=== PATIENT | female | born 1970 | race African-American/Black ===

== ENCOUNTER 2021-11-01 07:00 | Outpatient (RCR) | payer OTHER ==
[~2021-11-01 07:00] MED LIST: EFFEXOR XR 3737.5 MG PO; MOBIC7.5 MG PO
== END 2021-11-05 ==
LOC: PT 07:00
PROVIDERS: ATTEND Orthopaedic Surgery
DX: M25.561 Pain in right knee (principal); M25.661 Stiffness of right knee, not elsewhere classified; M25.461 Effusion, right knee; M62.81 Muscle weakness (generalized)

== ENCOUNTER 2021-12-01 14:00 | Outpatient (RCR) | payer OTHER | END 2021-12-06 | LOC: PT 14:00 | PROVIDERS: ATTEND Orthopaedic Surgery | DX: M25.561 Pain in right knee (principal); M25.661 Stiffness of right knee, not elsewhere classified; M25.461 Effusion, right knee; M62.81 Muscle weakness (generalized) | CPT/HCPCS: 97139 ==

== ENCOUNTER 2021-12-20 08:00 | Outpatient (RCR) | payer OTHER | END 2022-01-05 | LOC: PT 08:00 | PROVIDERS: ATTEND Orthopaedic Surgery | DX: S89.91XA Unspecified injury of right lower leg, initial encounter (principal) | CPT/HCPCS: 97139 ==